=== PATIENT | male | born 1975 | race Caucasian/White ===

== ENCOUNTER 2016-12-29 23:35 | Emergency (ER) | payer OTHER ==
--- NOTE | 2016-12-29 23:51 | EDM.PDOC ---
ED HPI GENERAL MEDICAL PROBLEM - General Chief Complaint: General Stated Complaint: Abd pain Time Seen by Provider: 12/29/16 23:50 Source of Information: Reports: Patient. Denies: Old records (No [facility] records available) History Limitations: Reports: No limitations - History of Present Illness INITIAL COMMENTS - FREE TEXT/NARRATIVE: The patient was brought to the emergency room via transport vehicle from [facility] for evaluation of a Worker's Compensation injury, which occurred at about 22:45 hours this evening. The patient was lifting top plate for the boom, which weighs about 25-30 pounds, with sudden onset of sharp 7/10 periumbilical abdominal pain with some minimal radiation to the testicular regions bilaterally. He has not injured this area in the past and does not have any history of previous hernias. No recent history of other abdominal pain, heartburn, nausea, diarrhea, melena, gross hematochezia, or any food intolerance , including fatty foods, etc.. The patient also denies any recent fever, cough, wheezing, dyspnea, etc.. Onset: today, sudden Onset Date: 12/29/16 Onset Time: 22:45 Duration: Constant Location: Reports: abdomen, radiates to: (Testicular region as above). Denies: face, neck, chest, back, pelvis, upper extremity, left, upper extremity, right, lower extremity, left, lower extremity, right Quality: Reports: Sharp Severity: moderate Improves with: Reports: Rest Worsens with: Reports: Movement Context: Reports: Lifting Associated Symptoms: Denies: confusion, chest pain, cough, diaphoresis, fever/ chills, nausea/vomiting, shortness of breath, syncope, weakness Treatments SPECIAL POLICE: Reports: Other (see below) (None) Middle Abdominal Pain Score (Numeric/FACES): 7 - Related Data Allergies Allergy/AdvReac Type Severity Reaction Status Date / Time No Known Allergies Allergy Verified 12/29/16 23:44 Home Meds: Home Meds Cyclobenzaprine [Flexeril] 10 mg PO TID PRN #30 tablet 12/30/16 [Rx] Past Medical History HEENT History: Reports: None. Denies: Allergic rhinitis, Glaucoma, Hard of hearing, Impaired vision, Macular degeneration, Retinal detachment Cardiovascular History: Reports: None. Denies: Aneurysm, Arrhythmia, Blood clots/VTE/DVT, CAD, Heart murmur, High cholesterol, Hypertension, Syncope Respiratory History: Reports: None. Denies: Asthma, COPD, Intubation, previous , PE Gastrointestinal History: Reports: None. Denies: Celiac disease, Cholelithiasis , Chronic constipation, Chronic diarrhea, GERD, GI bleed, Hepatitis, Hiatal hernia, Inflammatory bowel disease, Irritable bowel syndrome, Jaundice, Pancreatitis, PUD Genitourinary History: Reports: None. Denies: BPH, Chronic renal insuffiency, Dialysis, Renal calculus, STD, Urinary incontinence, UTI, recurrent Musculoskeletal History: Reports: None. Denies: Amputation, Arthritis, Back pain, chronic, Fracture, Gout, Neck pain, chronic, Osteoarthritis, RA, SLE Neurological History: Reports: None. Denies: Cerebral aneurysms, Concussion, CVA, Headaches, chronic, Head trauma, Migraines, Seizure, TIA Psychiatric History: Reports: None. Denies: Abuse, victim of, ADD, ADHD, Addiction, Anxiety, Depression, Psych Hospitalization(s), PTSD, Suicide attempt , Suicidal ideation Endocrine/Metabolic History: Reports: None. Denies: Diabetes, type I, Diabetes , type II, Hypothyroidism, IDDM Hematologic History: Reports: None. Denies: Anemia, Blood transfusion(s), Iron deficiency Immunologic History: Reports: None. Denies: AIDS, HIV, SLE Oncologic (Cancer) History: Reports: None. Denies: Basal cell carcinoma, Hodgkin's Lymphoma, Leukemia, Lymphoma, Malignant melanoma, Non-Hodgkin's Lymphoma, Squamous cell carcinoma Dermatologic History: Reports: None. Denies: Eczema, Psoriasis - Infectious Disease History Infectious Disease History: Reports: Chicken pox. Denies: C-difficile, Measles , Meningitis, Mononucleosis, MRSA, Mumps, Pertussis (whooping cough), Rheumatic Fever, Rubella, Scarlet fever, Shingles, VRE - Past Surgical History Head Surgeries/Procedures: Reports: None HEENT Surgical History: Reports: Oral surgery, Other (see below). Denies: Adenoidectomy, Eye surgery, Laser surgery, LASIK, Myringotomy w tube(s), Naso- sinus surgery, Tonsillectomy Other HEENT Surgeries/Procedures: Jesse teeth extraction x4 at age 39 Cardiovascular Surgical History: Reports: None. Denies: Varicose, Vascular surgery Respiratory Surgical History: Reports: None. Denies: Thoracentesis GI Surgical History: Reports: None. Denies: Appendectomy, Cholecystectomy, Colonoscopy, EGD, Hernia, abdominal, Hernia, inguinal, Hernia repair/other Male Surgical History: Reports: None. Denies: Circumcision, Vasectomy Endocrine Surgical History: Reports: None. Denies: Thyroid biopsy Neurological Surgical History: Reports: None. Denies: C-Spine, Discectomy, Laminectomy, Lumbar spine, Spinal fusion, Vertebroplasty Musculoskeletal Surgical History: Reports: Ganglion cyst, Other (see below). Denies: Arthroscopic procedure, Carpal tunnel, Joint replacement, ORIF, Shoulder surgery Other Musculoskeletal Surgeries/Procedures:: Ganglion cyst removal from the extensor surface of the left wrist at about age 34 Oncologic Surgical History: Reports: None Dermatological Surgical History: Reports: None Social & Family History - Tobacco Use Smoking Status *Q: Never Smoker Tobacco Use Within Last Twelve Months: No Smoking Cessation Information Provided To Patient: No Second Hand Smoke Exposure: No Second Hand Smoke Education Provided: No - Caffeine Use Caffeine Use: Reports: Coffee (1 cup 2 times per week), Energy drinks (One drink per month), Soda (One soda per day), Tea (Half a gallon per week) - Alcohol Use Alcohol Use History: Yes Days Per Week of Alcohol Use: 0 (DWI at age 40 with no history of alcohol abuse , treatment, etc.) Number of Drinks Per Day: 7 (Usually beer about twice per month) Total Drinks Per Week: 0 Alcohol Use in Last Twelve Months: Yes Alcohol Use Frequency: Socially - Recreational Drug Use Recreational Drug Use: No Drug Use in Last 12 Months: No Recreational Drug Type: Denies: Amphetamines (Speed), Cocaine, Heroin, Inhalants (Glues, Solvents, Aerosols), LSD (Acid), Marijuana/Hashish, Methamphetamine, Morphine - Living Situation & Occupation Living situation: Reports: (1993, 4 children), with family Occupation: employed ([employer]) ED ROS GENERAL - Review of Systems Review Of Systems: ROS reveals no pertinent complaints other than HPI. ED EXAM, GENERAL - Physical Exam Exam: See Below Exam Limited By: No limitations General Appearance: alert, WD/WN, no apparent distress Head: atraumatic, normocephalic Neck: normal inspection, supple, non-tender, full range of motion. No: lymphadenopathy (L), lymphadenopathy (R), thyromegaly Respiratory/Chest: no respiratory distress, lungs clear, normal breath sounds, no accessory muscle use, chest non-tender. No: pleural rub, retractions Cardiovascular: normal peripheral pulses, regular rate, rhythm, no edema, no gallop, no JVD, no murmur, no rub. No: gallop/S3, gallop/S4, friction rub Peripheral Pulses: 4+: radial (L), radial (R) GI/Abdominal: normal bowel sounds, no organomegaly, no distention, no abnormal bruit, no mass, tender (Mild to moderate localized palpation pain in the periumbilical region with no ecchymosis, swelling, or evidence of herniation). No: guarding, rebound, hernia (Male) Exam: No hernia, Normal inspection, Normal prostate. No: Circumcised , Inguinal lymphadenopathy, Scrotum tenderness (L), Scrotum tenderness (R), Testicular tenderness (L), Testicular tenderness (R) Rectal (Males) Exam: Deferred Back Exam: normal inspection, full range of motion. No: CVA tenderness (L), CVA tenderness (R), muscle spasm Extremities: normal inspection, normal range of motion, non-tender, normal capillary refill, no pedal edema Neurological: alert, oriented, CN II-XII intact, normal cognition, normal gait, no motor/sensory deficits Psychiatric: normal affect, normal mood Skin Exam: Warm, Dry, Intact, Normal color, No rash, Tattoo(s). No: Diaphoretic , Wound/incision Lymphatic: no adenopathy Course - Vital Signs Last Recorded V/S: Last Vital Signs Temp 37.1 C 12/29/16 23:36 Pulse 82 12/29/16 23:36 Resp 16 12/29/16 23:36 BP 126/78 12/29/16 23:36 Pulse Ox 98 12/29/16 23:36 Vital Signs - 24 hr 12/29/16 23:36 Temperature [ 37.1 C Temporal] Pulse, 82 Peripheral [ Right Pulse Oximetry] Respiratory 16 Rate Blood Pressure 126/78 [Left Upper Arm ] O2 Sat by Pulse 98 Oximetry - Orders/Labs/Meds Orders: Active Orders 24 hr Category Date Time Status Obtain Past Medical Record [OM.PC] Routine Oth 12/29/16 23:51 Active Labs: None Meds: None - Radiology Interpretation Free Text/Narrative:: None Departure - Departure Time of Disposition: 00:35 Disposition: Home, Self-Care 01 Condition: good Clinical Impression: Muscle strain Prescriptions: Cyclobenzaprine [Flexeril] 10 mg PO TID PRN #30 tablet PRN Reason: Spasms Instructions: Cyclobenzaprine tablets, Muscle Strain, [id number] Referrals: Ash Mendez MD [Primary Care Provider] - Forms: ED Department Discharge Additional Instructions: 1. Follow up with your regular provider in 7 days as needed, if symptoms persist. 2. Tylenol 650 mg by mouth every 4 hours and/or OTC ibuprofen 2-3 tabs by mouth every 6 hours with food as directed./needed. 3. BenGay or equivalent, heating pad, and/or ice packs as directed. 4. Sedation, dry mouth, etc. precautions with your muscle relaxant/Flexeril. You may not work or drive while taking this medication during the day as discussed. 5. Work excuse- See Form - Problem List & Annotations (1) Muscle strain SNOMED Code(s): 53638406 Code(s): T14.8 - OTHER INJURY OF UNSPECIFIED BODY REGION Status: Acute Priority: High Onset Date: 12/29/16 Annotation/Comment:: Mild periumbilical muscle strain with no evidence of herniation as above. Various therapeutic options were discussed with patient requesting not to have the IM Toradol, etc. Symptomatic relief as per discharge instructions. [employer] work excuse provided. Activity restrictions, sedation precautions with Flexeril, etc. extensively discussed - Problem List Review Problem List Initiated/Reviewed/Updated: Yes - My Orders Last 24 Hours: My Active Orders 12/29/16 23:51 Obtain Past Medical Record [OM.PC] Routine - Assessment/Plan Last 24 Hours: My Active Orders 12/29/16 23:51 Obtain Past Medical Record [OM.PC] Routine Assessment:: As above Plan: As above. Extensive precautions were given to the patient, who is in agreement with the treatment plan. See Patient Instructions for further treatment and plan.
== END 2016-12-30 00:35 | disposition home or self-care (01) ==
LOC: LL.ED 23:35
CPT/HCPCS: 99283